=== PATIENT | male | born 1985 | race Asian ===

== ENCOUNTER 2023-06-10 06:57 | Day surgery (SDC) | payer OTHER ==
[~2023-06-10] VITALS: Ht 182.9 cm; Wt 68.9 kg
[2023-06-10] MEDS ORDERED: fentaNYL citrate 0.05 MG/ML VIAL ONE (08:39)
[2023-06-10] MEDS ORDERED: MIDAZOLAM 5 MG/5 ML VIAL ONE (08:39)
[2023-06-10] MEDS: MIDAZOLAM 5 MG/5 ML VIAL IV ONE (09:04)
== END 2023-06-10 09:40 | disposition home or self-care (01) ==
LOC: MDS 06:57 → MMU 06:57 → MDS 09:40
PROVIDERS: ATTEND Internal Medicine Gastroenterology
DX: K30 Functional dyspepsia (principal); K29.70 Gastritis, unspecified, without bleeding; K20.90 Esophagitis, unspecified without bleeding; F17.210 Nicotine dependence, cigarettes, uncomplicated
CPT/HCPCS: 36415; 43239; 86677; J2250; J3010